=== PATIENT | female | born 2000 | race African-American/Black ===

== ENCOUNTER 2021-04-30 13:12 | Emergency (ER) | payer OTHER, SELFPAY ==
--- NOTE | ~2021-04-30 | XR_ITS ---
EXAMINATION: LEFT FOOT AND LEFT ANKLE CLINICAL INFORMATION: Injury. Pain. COMPARISON: None TECHNIQUE: 3 views left foot and 2 views left ankle FINDINGS: LEFT FOOT: There is no visible acute fracture, dislocation or subluxation seen. The soft tissues are normal. LEFT ANKLE: There is no visible acute fracture, dislocation or soft tissue swelling. The ankle mortise and subtalar joints are normal. XR/XR foot LT min 3V IMPRESSION: Unremarkable left foot exam. Unremarkable left ankle exam.
--- NOTE | ~2021-04-30 | XR_ITS ---
EXAMINATION: LEFT FOOT AND LEFT ANKLE CLINICAL INFORMATION: Injury. Pain. COMPARISON: None TECHNIQUE: 3 views left foot and 2 views left ankle FINDINGS: LEFT FOOT: There is no visible acute fracture, dislocation or subluxation seen. The soft tissues are normal. LEFT ANKLE: There is no visible acute fracture, dislocation or soft tissue swelling. The ankle mortise and subtalar joints are normal. XR/XR ankle LT min 3V IMPRESSION: Unremarkable left foot exam. Unremarkable left ankle exam.
[2021-04-30 14:59] VITALS: BP 105/56; PULSE 81; RESP 17; TEMP 36.6; O2SAT 99; BMI 21.2
--- NOTE | 2021-04-30 15:13 | ED_ITS ---
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, no other injury Related Data Allergies Allergy/AdvReac Type Severity Reaction Status Date / Time latex [LATEX] Allergy Unknown UNKNOWN Unverified 01/28/20 19:32 Review of Systems Review of Systems: Positive left foot and ankle pain Negatives are no headache no head injury no neck pain no back pain no chest pain no numbness weakness or tingling no lacerations no wounds Yes all other systems are reviewed and are negative PMFSH Past Medical History Source: nursing notes reviewed Social History Social History Advance Directives: No Advance Directives Information Provided: No Patient : No Physical Exam Vital Signs: Vital Signs: Last Vital Signs Temp 98 F 04/30/21 14:59 Pulse 81 04/30/21 14:59 Resp 17 04/30/21 14:59 BP 105/56 L 04/30/21 14:59 Pulse Ox 99 04/30/21 14:59 BMI result Body Mass Index 21.2 General appearance comfortable no distress Head is normocephalic atraumatic Neck supple nontender Respiratory no distress The back full range of motion Extremities full range of motion x4 Left ankle exam there is some mild medial tenderness, there is a full range of motion in the ankle there is no significant swelling or ecchymosis Left foot exam there is tender nose over the dorsal foot distal and proximal, again no significant swelling or ecchymosis no deformities, skin is intact and neurovascular intact distal Course Course Course Narrative: X-rays of left foot and ankle were normal Patient was given crutches and an ankle brace and will follow with orthopedics as needed Discharge Plan Discharge Clinical Impression: Sprain of foot, left Patient Disposition: Home, Self-Care Additional Instructions: X-rays did not show any broken bones X-ray can miss many injuries so if not improving after week follow with orthopedics for re-evaluation Return any concerns Apply ice, elevate foot and Motrin as needed Referrals: Nam Davis PA-C [Physician Phototypesetter Operator] - 2 days (Left foot injury) Stand Alone Forms: Work/School Release
== END 2021-04-30 15:59 | disposition home or self-care (01) ==
PROVIDERS: Emergency Provider Emergency Medicine
DX: S93.602A Unspecified sprain of left foot, initial encounter (principal); X50.1XXA Overexertion from prolonged static or awkward postures, initial encounter; Y93.41 Activity, dancing; Y92.29 Other specified public building as the place of occurrence of the external cause; Y99.0 Civilian activity done for income or pay
CPT/HCPCS: 73610; 73630; 99283

== ENCOUNTER 2025-02-22 14:45 | Emergency (ER) | payer MEDICAID, SELFPAY ==
--- NOTE | ~2025-02-22 | XR_ITS ---
CLINICAL HISTORY: pain 4 view, chest and right ribs Comparison: None provided Findings: Bones intact. No dislocations. The lungs are clear. Cardiomediastinal silhouette is within normal limits. IMPRESSION: 1. No acute fractures. This document has been electronically signed by: Cindi Duenas MD on 02/22/2025 21:14:36
[2025-02-22 14:55] VITALS: BP 110/79; PULSE 73; O2SAT 100
[2025-02-22 14:57] VITALS: BP 109/58; PULSE 71; RESP 16; TEMP 36.5; O2SAT 100; BMI 21.2
--- NOTE | 2025-02-22 15:01 | ED_ITS ---
HPI - General Adult General Chief complaint: General Medical Stated complaint: RT SIDE RIB PAIN X 2 MONTHS PER EMS Time Seen by Provider: 02/22/25 16:44 Related Data Allergies Allergy/AdvReac Type Severity Reaction Status Date / Time latex (LATEX) Allergy Unknown UNKNOWN Verified 02/22/25 14:59 tramadol Allergy Nausea and Verified 02/22/25 14:59 Vomiting PMFSH Social History Social History Smoked in Last 30 Days: No Use of substances other than those prescribed or required for medical reasons: No Advance Directives: No Advance Directives Information Provided: No Do you have a plan to hurt others: No Plan Patient : No Physical Exam ED Vital Signs: Vital Signs - 24 hr 02/22/25 14:57 02/22/25 16:18 02/22/25 16:52 Temperature 97.7 F 97.7 F 98.4 F Pulse Rate 71 71 86 Respiratory Rate 16 16 18 Blood Pressure 109/58 L 109/58 L 120/61 Pulse Oximetry 100 100 94 Oxygen Delivery Method Room Air Room Air Room Air BMI result Body Mass Index 21.2 Course Course Course Narrative: Rapid medical examination performed in triage by Dixie Vela PA-C. Patient is a 24 year old assigned female at presenting to the emergency department with right sided rib pain / rib locking. Detailed physical exam and review of systems are deferred to the mental health clinician. Imaging ordered. Patient placed back in the waiting room pending room availability and results. Medications Administered Discontinued Medications Generic Name Dose Route Start Last Admin Trade Name Freq PRN Reason Stop Dose Admin Ketorolac Tromethamine 15 mg 02/22/25 17:49 02/22/25 18:13 Ketorolac Tromethamine 15 Mg/Ml Vial IVPUSH 02/22/25 17:50 15 mg ONCE ONE Administration Medical Decision Making Lab Data 02/22/25 19:33 02/22/25 19:33 Labs: Lab Results 02/22/25 Range/Units 19:33 WBC 9.2 (4.8-10.8) X10*3/uL RBC 4.49 (4.20-5.50) X10*6/uL Hgb 13.4 (12.0-16.0) g/dl Hct 39.8 (37.0-47.0) % MCV 88.6 (80.0-98.0) fL MCH 29.8 (27.0-33.0) pg MCHC 33.7 (31.0-35.0) g/dl RDW 12.4 (11.0-16.0) % Plt Count 273 (160-400) X10*3/uL MPV 10.2 (9.4-12.3) fL Immature Gran % (Auto) 0.3 (0.0-0.4) % Neut % (Auto) 55.2 (45-73) % Lymph % (Auto) 37.5 (20-40) % [place] % (Auto) 5.6 (2-11) % Eos % (Auto) 1.1 (0-4) % Baso % (Auto) 0.3 (0-2) % Lymph # (Auto) 3.5 (1.2-4.9) X10*3/uL [place] # (Auto) 0.5 (0.1-1.2) X10*3/uL Eos # (Auto) 0.1 (0.0-0.4) X10*3/uL Baso # (Auto) 0.0 (0.0-0.2) X10*3/uL Abs Immat Gran (auto) 0.03 (0.00-0.03) X10*3/uL Absolute Neuts (auto) 5.1 (2.0-8.3) x10*3/uL Absolute Nucleated RBC 0.000 (0.0-0.012) X10*3/uL Nucleated RBC % (auto) 0.0 (0.0-0.2) /100WBC D-Dimer High Sensitivty < 150 NG/ML Sodium 140 (135-145) mmol/L Potassium 3.7 (3.3-5.1) mmol/L Chloride 111 H (96-108) mmol/L Carbon Dioxide 22 (22-29) mmol/L Anion Gap 11 L (12-20) BUN 12 (9-16) mg/dL Creatinine 0.81 (0.5-1.4) mg/dL Estim Creat Clear Calc 87.8 Estimated GFR > 60 Random Glucose 83 (60-115) mg/dL Calcium 8.8 (8.4-10.2) mg/dL Total Bilirubin 0.5 (0.0-1.0) mg/dL Direct Bilirubin 0.2 (0.0-0.5) mg/dL AST 37 H (5-31) U/L ALT 35 H (0-31) U/L Alkaline Phosphatase 64 (39-117) U/L Troponin I High Sens < 2.7 (<3.5-17.0) ng/L Total Protein 7.4 (6.5-8.0) g/dL Albumin 4.6 (3.5-5.0) g/dL Lipase 33 (8-78) U/L Beta HCG, Quant < 2 mIU/mL Discharge Plan Discharge Clinical Impression: Contusion of rib Patient Disposition: Home, Self-Care Instructions: Costochondritis (DC) Referrals: [place],[facility] [Primary Care Provider, Primary Care] - 02/24/25 Print Language: Macedonian
[2025-02-22 16:18] VITALS: BP 109/58; PULSE 71; RESP 16; TEMP 36.5; O2SAT 100
--- NOTE | 2025-02-22 16:23 | PC.NURSE ---
24 F presents to ED with R rib pain x 2 months, pain has gotten worse. Pt sts ribs lock and she feels like she cannot move them. Pt c/o 10/10 pain, also concerned for mold in her home and requesting testing for it. Pt sts it hurts to take a deep breath. Pt is A+Ox4, calm, cooperative. Pt is ambulatory.
--- OUTSIDE RECORDS SUMMARY | 2025-02-22 16:40 | XMS_ITS | Clinical Summary ---
Author Organization [facility] Address [address] [place] [address] Phone Care Team Providers Care Intake Rn Name Role Phone Nataliia Bennett MD Primary Care Provider [phone] Allergies Active Allergy Reactions Criticality Noted Date Comments Latex Rash Low 11/09/2024 Tramadol GI intolerance Medium 11/09/2024 NAUSEA / VOMITING Social History Tobacco Use Types Packs/Day Years Used Date Smoking Tobacco: Never Smokeless Tobacco: Never Alcohol Use Standard Drinks/Week Comments Yes 0 (1 standard drink = 0.6 oz pur e alcohol) Comments Unknown Sex and Gender Information Value Date Recorded Sex Assigned at Not on file Legal Sex Female 4:16 AM EST Gender Identity Not on file Sexual Orientation Not on file Obstetrics History Last Filed Vital Signs Vital Sign Reading Time Taken Comments Blood Pressure 112/66 11/09/2024 6:17 PM EDT Pulse 120 11/09/2024 8:09 PM EDT Temperature 36.9 C (98.4 F) 11/09/2024 6:22 PM EDT Respiratory Rate 19 11/09/2024 8:09 PM EDT Oxygen Saturation 96% 11/09/2024 6:22 PM EDT Inhaled Oxygen Concentration - - Weight 54.4 kg (120 lb) 11/09/2024 11:17 AM EDT Height 157.5 cm (5' 2 ) 11/09/2024 11:17 AM EDT Body Mass Index 21.95 11/09/2024 11:17 AM EDT Plan of Treatment Health Maintenance Due Date Last Done Comments Pneumococcal Vaccine: Pediatrics (0 to 5 Years) and At-Risk Patients (6 to 49 Years) (1 of 1 - PPSV23, PCV20, or PCV21) 04/26/2006 03/01/2006, 12/09/2000, 09/02/2000 Cervical Cancer Screening: Pap Smear 10/27/2020 HIV Screening 06/11/2023 Social Influencers of Health Screening 06/11/2023 Depression Screening 05/13/2024 COVID-19 Vaccine ( season) 2025 09/09/2023 Influenza Vaccine (#1) 2025 , 06/03/2014, 04/11/2011, Additional history exists Cholesterol Screening (Lipid Panel) 12/16/2029 12/16/2024, 12/16/2024, 07/22/2023, Additional history exists DTaP,Tdap,and Td Vaccines (8 - Td or Tdap) 12/20/2032 12/20/2022, 09/17/2012, 12/15/2003, Additional history exists RSV Immunization Adult Patients (1 - 1-dose 75+ series) 10/27/2074 HIB Vaccines Completed 12/15/2003, 03/13, 09/02/2000, Additional history exists IPV Vaccines Completed 12/15/2003, 0 08/2003, 03/24/2001, Additional history exists MMR Vaccines Completed 06/19/2010, 080 08/2003, 12/09/2000 Varicella Vaccines Completed 06/19/2010, 0 06/25/2004, 12/09/2000 HPV Vaccines Completed 06/03/2014, 09/17/2012 Hepatitis A Vaccines Completed 06/03/2014, 06/19/19 11 Meningococcal ACWY Vaccine Completed 10/09/2016, Hepatitis B Vaccines Completed 09/09/2023, 08/02/2023, 09/02/2000, Additional history exists Hepatitis C Screening Completed 12/12/2023 Meningococcal B Vaccine Aged Out No l onger eligible based on patient's age to complete this topic RSV Immunization Patients Under 20 months Aged Out No longer eligible based on patient's age to complete this topic Insurance [place] - [place] Care Teams Intake Rn Relationship Specialty Start Date End Date Nataliia Bennett MD [address] [place] [address] PCP - General 09/12/23
--- OUTSIDE RECORDS SUMMARY | 2025-02-22 16:40 | XMS_ITS | Clinical Summary ---
Author Organization [facility] Address [address] [facility] [address] [place] [address] Care Team Providers Care Carton Folder Name Role Phone Unavailable Primary Care Provider Unavailabl e Encounters Date Type Department Care Team Description 12/01/2024 Population Health Risk Score Formerly [facility], [facility] Care [facility] ([facility]) Department [address] [facility] [address] [place] [id number] Provider, Population Health Generic from Last 3 Months Social History Tobacco Use Types Packs/Day Years Used Date Smoking Tobacco: Never Assessed Comments Unknown Sex and Gender Information Value Date Recorded Sex Assigned at Not on file Legal Sex Female 9:29 PM EDT Gender Identity Not on file Sexual Orientation Not on file Plan of Treatment Health Maintenance Due Date Last Done Comments Depression Screening 1999 SDOH Screening 1999 Disability Screening 1999 Alcohol/Substance Use Screening 2011 Tobacco Screening 2011 Family Planning (PISQ) 10/27/2014 Hepatitis C Screening 10/27/2017 Pneumococcal Vaccine: Pediatrics (0 to 5 Years) and At-Risk Patients (6 to 49) Years (1 of 2 - PCV) 10/27/2018 03/01/2006, 12/09/2000, 09/02/2000 Pap Smear 10/27/2020 COVID-19 Vaccine ( - season) 2025 09/09/2023 Influenza Vaccine (#1) 2025 , 06/03/2014, 04/11/2011, Additional history exists DTaP/Tdap/Td Vaccines (8 - Td or Tdap) 12/20/2032 12/20/2022, 09/17/2012, 12/15/2003, Additional history exists Zoster Vaccines (1 of 2) 10/27/2049 RSV Patients and Patients Aged 60 years or older (1 - 1-dose 75+ series) 10/27/2074 HIB Vaccines Completed 12/15/2003, 03/13, 09/02/2000, Additional history exists IPV Vaccines Completed 12/15/2003, 08/2003, 03/24/2001, Additional history exists HPV Vaccines Completed 06/03/2014, 09/17/2012 Hepatitis A Vaccines Completed 06/03/2014, 06/19/19 11 Meningococcal Vaccine Completed 10/09/2016, 013 HIV Screening Completed 07/22/2023, 07/11, 05/02/2023 Hepatitis B Vaccines Completed 09/09/2023, 08/02/19 24 Meningococcal B Vaccine Aged Out No l onger eligible based on patient's age to complete this topic RSV under 20 months Aged Out No longe r eligible based on patient's age to complete this topic Rotavirus Vaccines Aged Out No longer eligible based on patient's age to complete this topic
--- OUTSIDE RECORDS SUMMARY | 2025-02-22 16:40 | XMS_ITS | Clinical Summary ---
Author Organization [facility] Address [address] [place] [address] Care Team Providers Care Sand Slinger Name Role Phone Bela, Elina IVELISSE Primary Care Provider Source Comments PLEASE NOTE, if this patient is a minor, it may be UNLAWFUL to discuss sensitive information that is contained in these records (such as FAMILY PLANNING, MENTAL HEALTH or SUBSTANCE ABUSE) with the minor patient's parent or other person without the patient's specific authorization.[facility] Allergies Active Allergy Reactions Criticality Noted Date Comments Latex 05/21/2023 Tramadol 05/02/2023 Medications budesonide-formot Ramírez (SYMBICORT) 160-4.5 mcg/actuation inhalerIndication s:Moderate persistent asthma without complication Inhale 2 Puffs into the lungs 2 (two) times daily Rinse mouth after use. 30 g 2 3 Active albuterol HFA 90 mcg/actuation inhalerIndication s:Moderate persistent asthma without complication Inhale 2 Puffs into the lungs every 4 to 6 (four to six) hours as needed for shortness of breath or wheezing (cough/sob) 3 Each 1 3 Active sertraline (ZOLOFT) 50 mg tablet Take 50 mg by mouth once daily Active sertraline (ZOLOFT) 100 mg tablet Take 100 mg by mouth once daily 3 Active hydrOXYzine HCL (ATARAX) 10 mg tablet Take 10 mg by mouth once daily as needed 3 Active ferrous sulfate 325 mg (65 mg iron) tabletIndications :Iron deficiency Take 1 Tablet by mouth once daily with breakfast 90 Tablet 3 4 Active QUEtiapine (SEROQUEL) 25 mg tablet Take 25 mg by mouth nightly at bedtime 4 Active FLOVENT DISKUS 100 mcg/actuation diskus inhaler Inhale 1 Puff into the lungs 2 (two) times daily 3 Active famotidine (PEPCID) 20 mg tablet Take 20 mg by mouth 2 (two) times daily 3 Active BANOPHEN 25 mg capsule TAKE 1 CAPSULE BY MOUTH TWICE DAILY NEEDED FOR ALLERGY SYMPTOMS 3 Active SUMAtriptan succinate (IMITREX) 100 mg tabletIndications :Chronic migraine with aura without status migrainosus, not intractable Take 1 pill and repeat after 2 hours. Maximum dose: 200 mg per 24 hours. 30 Tablet 1 4 Active meloxicam (MOBIC) 15 mg tablet Take 15 mg by mouth once daily 4 Active cloNIDine (CATAPRES) 0.1 mg tablet Take 0.1 mg by mouth 2 (two) times daily as needed 4 Active clotrimazole-beta methasone (LOTRISONE) 1-0.05 % creamIndications: Tinea corporis Apply topically 2 (two) times daily 45 g 4 Active carbamide peroxide (DEBROX) 6.5 % otic solutionIndicatio ns:Right ear impacted cerumen Place 10 Drops into the right ear 2 (two) times daily. 15 mL 5 Active docusate sodium (COLACE) 100 mg capsuleIndication s:Chronic constipation,Rout ine general medical examination at a health care facility Take 1 Capsule by mouth 2 (two) times daily. 90 Capsule 1 5 Active meclizine (ANTIVERT) 25 mg tabletIndications :Routine general medical examination at a health care facility,Vertigo Take 1 Tablet by mouth once daily as needed for nausea for up to 28 doses. 28 Tablet 5 Active polyethylene glycol, PEG, 3350 (GLYCOLAX) 17 gram/dose powderIndications :Chronic constipation,Rout ine general medical examination at a health care facility Take 17 g by mouth once daily. 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 Per lab 09/27/22, not enough blood to determine type. Encounters Date Type Department Care Team Description 12/24/2024 Results Follow-Up [address] [phone] Minda Cramer FNP 12/16/2024 10:00 AM EDT Office Visit [address] [address] Minda Cramer FNP from Last 3 Months Immunizations Immunization Administration Dates Next Due DTAP (Infanrix) 1999 APdQ-Itw-BGL (Pentacel) 12/15/2003,03/24,09/02/2000,03/01,1999 Flu, Preservative Free 05/02/2023 HPV, QUADRIVALENT 06/03/2014,09/17/2012 Hep A vaccine, pediatric dos age, unspecified formulation 06/19/2010 Hep A, Ped/adol, 2 Dose 06/03/2014 Hep B,adult,adjuvanted (HEPLISAV) 09/09/2023, INFLUENZA, SEASONAL, INJECTABLE 06/03/2014,04/11 IPV (IPOL) 12/15/2003 Influenza, Whole 04/25/2009 MENINGOCOCCAL ACWY, UNSPECIFIED 09/17/2012 MENINGOCOCCAL MCV4O (MENVEO) 10/09/2016 MMR (MMR II/Priorix) 06/19/2010,12/15/2003,12/09 PNEUMOCOCCAL CONJUGATE PCV 7 03/01/2006,12/10/19,09/02/2000 Pfizer COVID-19 (Comirnaty), Mrna, Lnp-s, Pf, Shola-sucrose, 30 Mcg/0.3 Ml, 12yr+ 09/09/2023 TDAP 12/20/2022,09/17/2012 Varicella (Varivax), Live Vaccine 06/19/2010,,12/09/2000 Family History Medical History Relation Name Comments Stomach Cancer Maternal Aunt Breast cancer Mother Relation Name Status Comments Maternal Aunt Mother Social History Tobacco Use Types Packs/Day Years Used Date Smoking Tobacco: Never Passive Smoke Exposure: Never Smokeless Tobacco: Never Tobacco Cessation:Counseling Given: Not Answered Alcohol Use Standard Drinks/Week Comments Yes 0 (1 standard drink = 0.6 oz pur e alcohol) occasional wine Social Connections Answer Date Recorded How often do you feel lonely or isolated from th ose around you? 1 03/05/2024 Financial Resource Strain Answer Date R ecorded Hard to pay for: Food 2 03/05/2024 Stress Answer Date Recorded Do you feel these kinds of stress these days? 1 03/05/2024 Physical Activity Answer Date Recorded Physical Activity 0 03/27/2023 Food Insecurity Answer Date Recorded Hard to pay for: Food 2 03/05/2024 Transportation Needs Answer Date Record ed Hard to pay for: Transportation 1 03/05/2024 Housing Stability Answer Date Recorded Hard to pay for: Rent/Mortgage payment 2 03/05/2024 Safety and Environment Answer Date Ivan rded Safety 1 05/21/2023 Utilities Answer Date Recorded Hard to pay for: Utilities 1 03/05 Employment Answer Date Recorded Employment 0 03/27/2023 Comments No Sex and Gender Information Value Date Recorded Sex Assigned at Female 05/02/2023 11:05 AM PST Legal Sex Female 8:30 AM PDT Gender Identity Female 05/02/2023 11:05 AM PST Sexual Orientation Straight 05/02/2023 11 :05 AM PST Last Filed Vital Signs Vital Sign Reading Time Taken Comments Blood Pressure 110/70 12/16/2024 10:17 AM EDT Pulse 78 12/12/2023 3:05 PM EDT Temperature 36.6 C (97.8 F) 12/16/2024 10:17 AM EDT Respiratory Rate 16 12/16/2024 10:17 AM EDT Oxygen Saturation 98% 12/02/2023 2:41 PM EDT Inhaled Oxygen Concentration - - Weight 58.5 kg (129 lb) 12/16/2024 10:17 AM EDT Height - - Body Mass Index - - Plan of Treatment Upcoming Encounters Date Type Department Care Team (Late st Contact Info) Description 03/12/2025 3:40 PM EDT Office Visit [facility] [address] [place] [phone] Elie Garcia MD [address] [place] [address] Health Maintenance Due Date Last Done Comments HPV Screening 1999 Pap Smear 10/27/2020 Relationship Safety Screening/Counseling 05/21/2024 05/21/2023 [id number] (2 - season) 2025 09/09/2023 Imm-Influenza (#1) 2025 05/02/2023, 0 06/03/2014, 04/11/2011, Additional history exists Depression Monitoring 03/18/2025 12/16/2024, 023 Imm-Pneumococcal (1 of 2 - PCV) 03/18/2025 03/01/2006, 12/09/2000, 09/02/2000 Postponed from 10/27/2018 (Patient postponement) Annual Wellness (Adult): Indicated (All Coverage) 12/16/2025 12/16/2024, 12/16/2024, 05/21/2023 Anxiety Screening 12/16/2025 12/16/2024 Diabetes Screening 12/16/2025 12/16/2024, 0 12/16/2024, 11/09/2024, Additional history exists Lipid Screening 12/16/2025 12/16/2024, 07/11, 05/02/2023 Tobacco Screening 12/16/2025 12/16/2024, 05/21/2023 Cervical Cancer Screening 07/18/2027 Pap + HPV 07/18/2027 07/17/2022 Hypertension Screening (#1) 12/16/2027 Imm-DTaP/Tdap/Td (8 - Td or Tdap) 12/20/2032 12/20/2022, 09/17/2012, 12/15/2003, Additional history exists Imm-HPV Completed 06/03/2014, 09/17/2012 HIV Screening Completed 07/22/2023, 05/02/2023 Imm-Hepatitis B Completed 09/09/2023, 08/02/2023 Hepatitis C Screening Completed 12/12/2023 , 07/22/2023, 05/02/2023 Alcohol and Drug Screen Completed 12/17/19, 05/21/2023, 05/02/2023 Cervical Ablation/Cold-Knife Conization Discontinued Cervical Cryotherapy Discontinued Colposcopy Discontinued Endometrial Biopsy Discontinued Excision/Leep Discontinued HPV Genotyping Discontinued Vaginal Pap Discontinued Vulvoscopy Discontinued Procedures Procedure Name Priority Date/Time Associated Diagnosis Comments HEALTH HISTORY SCANNED DOCUMENT 01/25/2025 3:00 AM EDT VITAMIN D, 1,25-DIHYDROXY Routine 12/16/2024 10:53 AM EDT Vitamin D deficiency IRON, TIBC, FERRITIN PANEL Routine 12/16/2024 10:53 AM EDT Routine general medical examination at a health care facility BLOOD COUNT COMPLETE AUTO&AUTO DIFRNTL WBC Routine 12/16/2024 10:53 AM EDT Routine general medical examination at a health care facility COMPREHENSIVE METABOLIC PANEL Routine 12/16/2024 10:53 AM EDT Routine general medical examination at a health care facility TSH W/RFLX FREE T4 Routine 12/16/2024 10 :53 AM EDT Routine general medical examination at a health care facility HEMOGLOBIN GLYCOSYLATED A1C Routine 12/16/2024 10:53 AM EDT Routine [facility] at [facility] LIPID PANEL Routine 12/16/2024 10:53 AM EDT Routine general medical examination at a [facility] ACUTE HEPATITIS PANEL W/RFLX Routine 12/12/2023 3:05 PM EDT History of bruising easily HIV 1/2 AG & AB W/RFLX (4TH GEN) Routine 07/22/2023 9:13 AM EDT Routine general medical examination at a [facility] from Last 3 Months or Most Recently Relevant to Health Maintenance Results * HEALTH HISTORY SCANNED DOCUMENT (01/25/2025 3:00 AM EDT) 01/25/2025 3:00 AM EDT [facility] Provider Default SCAN OTHER ORDERS Final Re sult * IRON, TIBC, FERRITIN PANEL Routine (12/16/2024 10:53 AM EDT) IRON, TOTAL 98 40 - 190 mcg/dL 12/17/2024 6:14 AM EDT [facility] IRON BINDING CAPACITY 266 250 - 450 mcg/dL (calc) 12/17/2024 6:14 AM EDT [facility] % SATURATION 37 16 - 45 % (calc) 12/17/2024 6:14 AM EDT [facility] FERRITIN 53 16 - 154 ng/mL 12/17/2024 6:16 AM EDT [facility] Blood Blood / Unknown 12/16/2024 1 0:53 AM EDT 12/17/2024 4:51 AM EDT [facility] - 12/17/2024 6:37 AM EDT FASTING:YES Minda Cramer [facility] - BLOOD DRAW Final Resul t Performing Organization Address [facility] Co de Phone Number [facility] [address] [address], [facility] [address] [address] * TSH W/RFLX FREE T4 Routine (12/16/2024 10:53 AM EDT) TSH W/REFLEX TO FT4 0.59 mIU/L 12/17/2024 6:16 AM EDT [facility] Blood Blood / Unknown 12/16/2024 1 0:53 AM EDT 12/17/2024 4:51 AM EDT [facility] - 12/17/2024 6:37 AM EDT FASTING:YES Reference Range . > or = 20 Years 0.40-4.50 . Ranges First trimester 0.26-2.66 Second trimester 0.55-2.73 Third trimester 0.43-2.91 us Minda [facility] - BLOOD DRAW Final Resul t Performing Organization Address City/[facility] Co de Phone Number [facility] [address] [address], [facility] [address] [address] * VITAMIN D, 1,25-DIHYDROXY Routine (12/16/2024 10:53 AM EDT) VITAMIN D, 1, 25 (OH)2, TOTAL 63 18 - 72 pg/mL 12/19/2024 5:40 PM EDT [facility] VITAMIN D3, 1, 25 (OH)2 63 pg/mL 12/19/2024 5:40 PM EDT [facility] VITAMIN D2, 1, 25 (OH)2 <8 pg/mL 12/19/2024 5:40 PM EDT [facility] Blood Blood / Unknown 12/16/2024 1 0:53 AM EDT 12/18/2024 5:07 AM EDT Narrative [facility] - 12/19/2024 5:47 PM EDT FASTING:YES . Vitamin D3, 1,25(OH)2 indicates both endogenous production and supplementation. Vitamin D2, 1,25(OH)2 is an indicator of exogenous sources, such as diet or supplementation. Interpretation and therapy are based on measurement of Vitamin D,1,25(OH)2, Total. . . This test was developed and its analytical performance characteristics have been determined [facility], [place], [place]. It has not been cleared or approved by the FDA. This assay has been validated pursuant to the CLIA regulations and is used for clinical purposes. . Minda Cramer [facility] - BLOOD DRAW Final Resul t [facility] [place] [address] [place], [place] , [facility] [address] [place], [place] * BLOOD COUNT COMPLETE AUTO&AUTO DIFRNTL WBC Routine (12/16/2024 10:53 AM EDT) WHITE BLOOD CELL COUNT 8.9 3.8 - 10.8 Thousand/ uL 12/17/2024 4:13 AM EDT [facility] RED BLOOD CELL COUNT 4.60 3.80 - 5.10 Million/u L 12/17/2024 4:13 AM EDT [facility] HEMOGLOBIN 13.9 11.7 - 15.5 g/dL 12/17/2024 4:13 AM EDT [facility] HEMATOCRIT 43.0 35.0 - 45.0 % 12/17/2024 4:13 AM EDT [facility] MCV 93.5 80.0 - 100.0 fL 12/17/2024 4:13 AM EDT [facility] MCH 30.2 27.0 - 33.0 pg 12/17/2024 4:13 AM EDT [facility] MCHC 32.3 32.0 - 36.0 g/dL 12/17/2024 4:13 AM EDT [facility] RDW 12.2 11.0 - 15.0 % 12/17/2024 4:13 AM EDT [facility] PLATELET COUNT 267 140 - 400 Thousand/ uL 12/17/2024 4:13 AM EDT [facility] MPV 12.2 7.5 - 12.5 fL 12/17/2024 4:13 AM EDT [facility] ABSOLUTE NEUTROPHILS 4,423 1,500 - 7,800 cells/uL 12/17/2024 4:13 AM EDT [facility] ABSOLUTE LYMPHOCYTES 3,711 850 - 3,900 cells/uL 12/17/2024 4:13 AM EDT [facility] ABSOLUTE MONOCYTES 605 200 - 950 cells/uL 12/17/2024 4:13 AM EDT [facility] ABSOLUTE EOSINOPHILS 107 15 - 500 cells/uL 12/17/2024 4:13 AM EDT [facility] ABSOLUTE BASOPHILS 53 0 - 200 cells/uL 12/17/2024 4:13 AM EDT [facility] NEUTROPHILS PCT 49.7 % 4:13 AM EDT [facility] LYMPHOCYTES 41.7 % 12/17/2024 4:13 AM EDT [facility] MONOCYTES 6.8 % 12/17/2024 4:13 AM EDT [facility] EOSINOPHILS 1.2 % 12/17/2024 4:13 AM EDT [facility] BASOPHILS 0.6 % 12/17/2024 4:13 AM EDT [facility] Blood Blood / Unknown 12/16/2024 1 0:53 AM EDT 12/17/2024 2:41 AM EDT Narrative [facility] - 12/17/2024 4:13 AM EDT FASTING:YES For adults, a slight decrease in the calculated MCHC value (in the range of 30 to 32 g/dL) is most likely not clinically significant; however, it should be interpreted with caution in correlation with other red cell parameters and the patient's clinical condition. us Minda Cramer [facility] - BLOOD DRAW Final Resul t [facility] [address] [place] [address], [facility] [address] [place] [address] * HEMOGLOBIN GLYCOSYLATED A1C Routine (12/16/2024 10:53 AM EDT) Pathologist [facility] HEMOGLOBIN A1C 5.3 <5.7 % 12/17/2024 6:22 AM EDT [facility] Blood Blood / Unknown 12/16/2024 1 0:53 AM EDT 12/17/2024 2:41 AM EDT Narrative [facility] - 12/17/2024 6:37 AM EDT FASTING:YES For the purpose of screening for the presence of diabetes: . <5.7% Consistent with the absence of diabetes 5.7-6.4% Consistent with increased risk for diabetes (prediabetes) > or =6.5% Consistent with diabetes . This assay result is consistent with a decreased risk of diabetes. . Currently, no consensus exists regarding use of hemoglobin A1c for diagnosis of diabetes in children. . According to [place] Diabetes Association (ADA) guidelines, hemoglobin A1c <7.0% represents optimal control in non- diabetic patients. Different metrics may apply to specific patient populations. Standards of Medical Care in Diabetes(ADA). . us Minda Cramer [facility] - BLOOD DRAW Final Resul t [facility] [address] [address], [facility] [address] [address] * LIPID PANEL Routine (12/16/2024 10:53 AM EDT) Pathologist [facility] CHOLESTEROL, TOTAL 109 <200 mg/dL 12/17/2024 6:14 AM EDT [facility] HDL CHOLESTEROL 54 > OR = 50 mg/dL 12/17/2024 6:14 AM EDT [facility] TRIGLYCERIDES 68 <150 mg/dL 12/17/2024 6:14 AM EDT [facility] LDL-CHOLESTEROL 41 mg/dL (calc) 12/17/2024 6:14 AM EDT [facility] CHOL/HDLC RATIO 2.0 <5.0 (calc) 12/17/2024 6:14 AM EDT [facility] NON-HDL CHOLESTEROL 55 <130 mg/dL (calc) 12/17/2024 6:14 AM EDT [facility] Blood Blood / Unknown 12/16/2024 1 0:53 AM EDT 12/17/2024 4:51 AM EDT Narrative [facility] - 12/17/2024 6:37 AM EDT FASTING:YES Reference range: <100 . Desirable range <100 mg/dL for primary prevention; <70 mg/dL for patients with CHD or diabetic patients with > or = 2 CHD risk factors. . LDL-C is now calculated using the Tania calculation, which is a validated novel method providing better accuracy than the Friedewald equation in the estimation of LDL-C. Yaya CLEMENT et al. FLAKO. 2013;310(19): 5527-7106 (http://education.Lango.BuzzVote/faq/XCZ852) For patients with diabetes plus 1 major ASCVD risk factor, treating to a non-HDL-C goal of <100 mg/dL (LDL-C of <70 mg/dL) is considered a therapeutic option. us Minda Cramer [facility] - BLOOD DRAW Final Resul t [facility] [address] [place] [id number], [facility] [address] [address] * COMPREHENSIVE METABOLIC PANEL Routine (12/16/2024 10:53 AM EDT) GLUCOSE 70 65 - 99 mg/dL 12/17/2024 6:14 AM EDT [facility] UREA NITROGEN (BUN) 11 7 - 25 mg/dL 12/17/2024 6:14 AM EDT [facility] CREATININE (blood) 0.81 0.50 - 0.96 mg/dL 12/17/2024 6:14 AM EDT [facility] EGFR 103 > OR = 60 mL/min/1. 73m2 12/17/2024 6:14 AM EDT [facility] BUN/CREATININE RATIO SEE NOTE: 6 - 22 (calc) 12/17/2024 6:14 AM EDT [facility] SODIUM 141 135 - 146 mmol/L 12/17/2024 6:14 AM EDT [facility] POTASSIUM 4.1 3.5 - 5.3 mmol/L 12/17/2024 6:14 AM [employer] [facility] CHLORIDE 107 98 - 110 mmol/L 12/17/2024 6:14 AM [email or web address] CARBON DIOXIDE 28 20 - 32 mmol/L 12/17/2024 6:14 AM [facility] CALCIUM 9.2 8.6 - 10.2 mg/dL 12/17/2024 6:14 AM [employer] [facility] PROTEIN, TOTAL 6.8 6.1 - 8.1 g/dL 12/17/2024 6:14 AM [employer] [facility] ALBUMIN 4.3 3.6 - 5.1 g/dL 12/17/2024 6:14 AM [employer] [facility] GLOBULIN 2.5 1.9 - 3.7 g/dL (calc) 12/17/2024 6:14 AM [employer] [facility] ALBUMIN/GLOBULI N RATIO 1.7 1.0 - 2.5 (calc) 12/17/2024 6:14 AM [employer] [facility] BILIRUBIN, TOTAL 0.2 0.2 - 1.2 mg/dL 12/17/2024 6:14 AM [employer] [facility] ALKALINE PHOSPHATASE 51 31 - 125 U/L 12/17/2024 6:14 AM [employer] [facility] AST 19 10 - 30 U/L 12/17/2024 6:14 AM [employer] [facility] ALT 17 6 - 29 U/L 12/17/2024 6:14 AM [facility] Blood Blood / Unknown 12/16/2024 1 0:53 AM EDT 12/17/2024 4:51 AM EDT Narrative [facility] - 12/17/2024 6:37 AM EDT FASTING:YES . Fasting reference interval . Not Reported: BUN and Creatinine are within reference range. . M[facility] LAB - BLOOD DRAW Final Resul t [facility] [address] [address], [facility] [address] [place] [address] * HEPATITIS PANEL W/RFLX (12/12/2023 3:05 PM EDT) HEPATITIS A IGM ANTIBODY NON-REACT MAGED NON-REACT MAGED [facility] COMMENT [facility] HEPATITIS B SURFACE ANTIGEN NON-REACT MAGED NON-REACT MAGED [facility] COMMENT [facility] HEPATITIS B CORE IGM ANTIBODY NON-REACT MAGED NON-REACT MAGED [facility] COMMENT [facility] HEPATITIS C ANTIBODY NON-REACT MAGED NON-REACT MAGED [facility] Comment: HCV antibody was non-reactive. There is no laboratory evidence of HCV infection. In most cases, no further action is required. However, if recent HCV exposure is suspected, a test for HCV RNA (test code 88233) is suggested. For additional information please refer to http://FortaTrust/faq/DAA80i2 (This link is being provided for informational/ educational purposes only.) Blood Blood / Unknown 12/12/2023 3 :05 PM EDT 12/12/2023 3:07 PM EDT Narrative [facility] - 12/13/2023 5:24 AM EDT FASTING:NO For additional information, please refer to http://FortaTrust/faq/CTG012 (This link is being provided for informational/ educational purposes only.) For additional information, please refer to http://Nambii.MarkTend/faq/RQL497 (This link is being provided for informational/ educational purposes only.) For additional information, please refer to http://Nambii.MarkTend/faq/DQY728 (This link is being provided for informational/ educational purposes only.) us Owen Lazaro PA-C LAB - BLOOD DRAW Final Result [facility] [address] [address], [facility] [address] [place] [address] * HIV 1/2 AG & AB W/RFLX (4TH GEN) (07/22/2023 9:13 AM EDT) HIV AG/AB, 4TH GEN NON-REAC TIVE NON-REAC TIVE [facility] Comment: HIV-1 antigen and HIV-1/HIV-2 antibodies were not detected. There is no laboratory evidence of HIV infection. PLEASE NOTE: This information has been disclosed to you from records whose confidentiality may be protected by state law. If your state requires such protection, then the state law prohibits you from making any further disclosure of the information without the specific written consent of the person to whom it pertains, or as otherwise permitted by law. A general authorization for the release of medical or other information is NOT sufficient for this purpose. For additional information please refer to http://education.MarkTend/faq/SYM789 (This link is being provided for informational/ educational purposes only.) The performance of this assay has not been clinically validated in patients less than 2 years old. Blood Blood / Unknown 07/22/2023 9 :13 AM EDT 07/22/2023 9:15 AM EDT Narrative [facility] - 07/23/2023 12:52 PM EDT FASTING:YES PATIENT UNABLE TO VOID; ADVISED TO RETURN FOR COLLECTION. [place] Corral [facility] LAB - BLOOD DRAW Final Re sult [facility] [address] [address], [facility] [address] [place] [address] from Last 3 Months or Most Recently Relevant to Health Maintenance Insurance [place] MEDICAID DENTAL [address] [employer] Care Teams [place] Relationship Specialty Start Date End Date Minda Cramer FNP [address] [place] [address] PCP - General Family Medicine, SALES REPRESENTATIVE CONSULTANT 10/15/24
[2025-02-22 16:52] VITALS: BP 120/61; PULSE 86; RESP 18; TEMP 36.9; O2SAT 94
--- NOTE | 2025-02-22 18:00 | ED_ITS ---
HPI - General Adult General Chief complaint: General Medical Stated complaint: RT SIDE RIB PAIN X 2 MONTHS PER EMS Time Seen by Provider: 02/22/25 16:44 History of Present Illness HPI narrative: 24-year-old female presents today with having right lower chest pain. Rib pain. Worse with movement. The pain has been on and off for the last month. Feels like she could not take a deep breath when she moves in a certain direction and makes it worse. There is no trauma. There is no fever no chills. Patient's gallbladder is out. Does not think she is her menstruation and her timing is normal. Patient denies any fever chills. Denies any change in appetite. Denies any coughing congestion upper respiratory symptoms. She is from home. Related Data Allergies Allergy/AdvReac Type Severity Reaction Status Date / Time latex (LATEX) Allergy Unknown UNKNOWN Verified 02/22/25 14:59 tramadol Allergy Nausea and Verified 02/22/25 14:59 Vomiting Review of Systems 2 Review of Systems: Positive right lower rib pain Yes all other systems are reviewed and are negative [facility] Past Medical History Attestation statement: The following information was validated with the patient. Social History Social History Smoked in Last 30 Days: No Use of substances other than those prescribed or required for medical reasons: No Advance Directives: No Advance Directives Information Provided: No Do you have a plan to hurt others: No Plan Patient : No Physical Exam ED Exam Exam: Appearance: Alert. Oriented X3. No acute distress. Eyes: Pupils equal, round and reactive to light. ENT: Pharynx normal. Neck: Normal inspection. Neck supple. No lymph nodes noted. No crepitus CVS: Normal heart rate and rhythm. Pulses normal. Normal S1 and S2 Respiratory: No respiratory distress. Breath sounds normal. No Wheezing. No rales Abdomen: Soft and nontender. No rigidity. No distention. good BS x4 Skin: Skin warm and dry. Normal skin color. Normal skin turgor. Extremities: No lower extremity edema. Neurovascular intact to all extremities. No Lacerations. No Rash Neuro: Oriented X 3. No motor deficit. No sensory deficit. Moving all extermities. No slurred speech Vital Signs: Vital Signs - 24 hr 02/22/25 14:57 02/22/25 16:18 02/22/25 16:52 Temperature 97.7 F 97.7 F 98.4 F Pulse Rate 71 71 86 Respiratory Rate 16 16 18 Blood Pressure 109/58 L 109/58 L 120/61 Pulse Oximetry 100 100 94 Oxygen Delivery Method Room Air Room Air Room Air BMI result Body Mass Index 21.2 Medications Administered Discontinued Medications Generic Name Dose Route Start Last Admin Trade Name Freq PRN Reason Stop Dose Admin Ketorolac Tromethamine 15 mg 02/22/25 17:49 02/22/25 18:13 Ketorolac Tromethamine 15 Mg/Ml Vial IVPUSH 02/22/25 17:50 15 mg ONCE ONE Administration Medical Decision Making Medical Decision Making [facility] Narrative: Patient eloped from the ED. Did not want to wait for her paperwork. Patient explained there is a risk for pneumothorax a risk for pneumonia. Ribs for rib fracture. Eventually the rib film was read. Grossly did not show any acute evidence of fracture. Patient's troponin was negative. D-dimer is less than 150 in the setting of low risk unlikely to have PE. Likely just have musculoskeletal pain. Patient's white count was normal hemoglobin is normal. Patient's electrolytes were unremarkable. LFT only minimally elevated. Will need follow-up on an outpatient basis. Currently in stable condition. test was negative no related issue Differential Diagnosis Differential Diagnoses: The differential diagnosis associated with the presentation includes Rib fracture, pneumothorax, ACS Admission/Observation Consideration of admission/observation: Escalation of care including admission/observation considered Lab Data [facility] Lab Attestation statement: I reviewed the patient's lab results. 02/22/25 19:33 02/22/25 19:33 Labs: Lab Results 02/22/25 Range/Units 19:33 WBC 9.2 (4.8-10.8) X10*3/uL RBC 4.49 (4.20-5.50) X10*6/uL Hgb 13.4 (12.0-16.0) g/dl Hct 39.8 (37.0-47.0) % MCV 88.6 (80.0-98.0) fL MCH 29.8 (27.0-33.0) pg MCHC 33.7 (31.0-35.0) g/dl RDW 12.4 (11.0-16.0) % Plt Count 273 (160-400) X10*3/uL MPV 10.2 (9.4-12.3) fL Immature Gran % (Auto) 0.3 (0.0-0.4) % Neut % (Auto) 55.2 (45-73) % Lymph % (Auto) 37.5 (20-40) % [place] % (Auto) 5.6 (2-11) % Eos % (Auto) 1.1 (0-4) % Baso % (Auto) 0.3 (0-2) % Lymph # (Auto) 3.5 (1.2-4.9) X10*3/uL [place] # (Auto) 0.5 (0.1-1.2) X10*3/uL Eos # (Auto) 0.1 (0.0-0.4) X10*3/uL Baso # (Auto) 0.0 (0.0-0.2) X10*3/uL Abs Immat Gran (auto) 0.03 (0.00-0.03) X10*3/uL Absolute Neuts (auto) 5.1 (2.0-8.3) x10*3/uL Absolute Nucleated RBC 0.000 (0.0-0.012) X10*3/uL Nucleated RBC % (auto) 0.0 (0.0-0.2) /100WBC D-Dimer High Sensitivty < 150 NG/ML Sodium 140 (135-145) mmol/L Potassium 3.7 (3.3-5.1) mmol/L Chloride 111 H (96-108) mmol/L Carbon Dioxide 22 (22-29) mmol/L Anion Gap 11 L (12-20) BUN 12 (9-16) mg/dL Creatinine 0.81 (0.5-1.4) mg/dL Estim Creat Clear Calc 87.8 Estimated GFR > 60 Random Glucose 83 (60-115) mg/dL Calcium 8.8 (8.4-10.2) mg/dL Total Bilirubin 0.5 (0.0-1.0) mg/dL Direct Bilirubin 0.2 (0.0-0.5) mg/dL AST 37 H (5-31) U/L ALT 35 H (0-31) U/L Alkaline Phosphatase 64 (39-117) U/L Troponin I High Sens < 2.7 (<3.5-17.0) ng/L Total Protein 7.4 (6.5-8.0) g/dL Albumin 4.6 (3.5-5.0) g/dL Lipase 33 (8-78) U/L Beta HCG, Quant < 2 mIU/mL Independent Interpretation I performed an independent interpretation of an: Plain X-Ray (Rib x-ray negative) Radiology Impression Discussion of test interpretation with radiology: I have reviewed the radiologist's reading. Social Determinants Patient?s care significantly limited by Social Determinants of Health including: Problems related to primary support group Discharge Plan Discharge Clinical Impression: Contusion of rib Patient Disposition: Home, Self-Care Instructions: Costochondritis (DC) Referrals: [facility] [Primary Care Provider, Primary Care] - 02/24/25 Print Language: Kyrgyz
[2025-02-22 19:37] LABS: MANUAL DIFF FLAG NO
[2025-02-22 19:39] LABS: Hematocrit 39.8 % (37.0-47.0); Hemoglobin 13.4 g/dl (12.0-16.0); Imm Gran Abs Auto 0.03 X10*3/uL (0.00-0.03); Imm Gran Pct Auto 0.3 % (0.0-0.4); Lymphocytes Absolute Auto 3.5 X10*3/uL (1.2-4.9); Mean Corpuscular HGB Conc 33.7 g/dl (31.0-35.0); Mean Corpuscular Hemoglobin 29.8 pg (27.0-33.0); Mean Corpuscular Volume 88.6 fL (80.0-98.0); NRBC Abs Auto 0.000 X10*3/uL (0.0-0.012); NRBC Pct Auto 0.0 /100WBC (0.0-0.2); Platelet Count 273 X10*3/uL (160-400); Red Blood Count 4.49 X10*6/uL (4.20-5.50); White Blood Count 9.2 X10*3/uL (4.8-10.8)
[2025-02-22 20:01] LABS: Alanine Aminotransferase 35 U/L (0-31); Albumin Level 4.6 g/dL (3.5-5.0); Alkaline Phosphatase 64 U/L (39-117); Anion Gap 11 (12-20); Aspartate Amino Transferase 37 U/L (5-31); Blood Urea Nitrogen 12 mg/dL (9-16); Calcium 8.8 mg/dL (8.4-10.2); Carbon Dioxide 22 mmol/L (22-29); Chloride 111 mmol/L (96-108); Creatinine Clr Calc Pharmacy 87.8; Estimated Glomerular Filt Rate > 60; Lipase 33 U/L (8-78); Potassium 3.7 mmol/L (3.3-5.1); Sodium 140 mmol/L (135-145); Total Protein 7.4 g/dL (6.5-8.0)
[2025-02-22 20:03] LABS: Troponin-I High Sensitivity < 2.7 ng/L (<3.5-17.0)
--- NOTE | 2025-02-22 20:30 | PC.NURSE ---
patient spoke to MD [place] and per MD patient wanted to leave and essentially was allowed to leave. no papers were signed per MD. per pt verbalized understanding risks of leaving and stated she'd return if any concerning results, MD stated he'd call her.
[2025-02-22 20:31] LABS: D Dimer High Sensitivity < 150 NG/ML
== END 2025-02-22 20:30 | disposition home or self-care (01) ==
PROVIDERS: Emergency Provider Emergency Medicine Emergency Medical Services; PCP Dentist General Practice
DX: S20.211A Contusion of right front wall of thorax, initial encounter (principal); R07.89 Other chest pain; X58.XXXA Exposure to other specified factors, initial encounter; Y93.9 Activity, unspecified; Y92.9 Unspecified place or not applicable; Y99.8 Other external cause status; Z79.899 Other long term (current) drug therapy
CPT/HCPCS: 36415; 71101; 80048; 80076; 83690; 84484; 84702; 85025; 85379; 96374; 99284; J1885

== ENCOUNTER → 2025-02-22 15:02 | Outpatient (BNV) | payer MEDICAID, SELFPAY | PROVIDERS: Emergency Provider Emergency Medicine Emergency Medical Services; PCP Dentist General Practice; Visit Provider Radiology Diagnostic Radiology | DX: R07.89 Other chest pain (principal) | CPT/HCPCS: 71101 ==